=== PATIENT | male | born 1950 | race Caucasian/White ===

== ENCOUNTER 2018-03-09 21:31 | Inpatient (IN) ==
[2018-03-09] MEDS ORDERED: NITROGLYCERIN DRIP 50 MG/250 ML BOTTLE IV PRN (22:19)
[2018-03-09] MEDS ORDERED: ENOXAPARIN 100 MG/ML SYRINGE SUBCUT STA (22:21)
[2018-03-09] MEDS ORDERED: NITROGLYCERIN DRIP 50 MG/250 ML BOTTLE IV ONE ×2 (22:29→23:26)
[2018-03-09] MEDS ORDERED: ENOXAPARIN 100 MG/ML SYRINGE SUBCUT ONE (22:29)
[2018-03-09 22:55] LABS: Basophils % 0.3 % (0.0-0.8); Eosinophils # 0.1 10*3/uL (0.0-0.87); Hematocrit 29.2 VOL% (42.0-52.0); Hemoglobin 9.3 GM/DL (14.0-18.0); Immature Granulocytes % 0.6 %; Immature Granulocytes Absolute 0.08 #; Lymphocytes # 1.9 10*3/uL (1.4-4.0); Lymphocytes % 14.1 % (21.2-54.2); Mean Corpuscular HGB Conc 31.8 GM/DL (32-36); Mean Corpuscular Hemoglobin 27 PG (27-34); Mean Corpuscular Volume 86.1 FL (87-102); Monocytes # 1.3 10*3/uL (0.11-0.8); Monocytes % 9.6 % (1.7-12.7); Neutrophils % 74.4 % (38.7-73.9); Platelet Count 299 T/CUMM (130-400); Red Blood Count 3.39 MC/CUMM (3.8-5.5); Red Cell Distribution Width 14.7 % (9.3-17.3); White Blood Count 13.4 T/CUMM (4-12)
[2018-03-09 23:01] LABS: INR 0.9; Partial Thromboplastin Time 27.1 SECS (0-40)
[2018-03-09 23:06] LABS: Albumin 4.1 G/DL (3.4-5.0); Bilirubin,Total 0.6 MG/DL (0.2-1.0); Calcium 8.6 MG/DL (8.5-10.1); Osmolality,Calculated 266.2 MOS/KG (273-304); Potassium 3.6 MMOL/L (3.5-5.1); Total Protein 6.8 G/DL (6.4-8.3)
[2018-03-09] MEDS ORDERED: ASPIRIN 325 MG TABLET ONE (23:07)
[2018-03-09 23:09] LABS: CKMB % 3.7 %
[2018-03-09 23:10] LABS: Troponin I Only 0.464 NG/ML (0.00-0.045)
[2018-03-09] MEDS ORDERED: MIDAZOLAM 2 MG/2 ML VIAL ONE (23:26)
[2018-03-09] MEDS ORDERED: fentaNYL 100 MCG/2 ML VIAL ONE (23:27)
[2018-03-09] MEDS ORDERED: VERAPAMIL 5 MG/2 ML VIAL ONE (23:27)
[2018-03-09] MEDS ORDERED: EPTIFIBATIDE 20,000 MCG/10 ML VIAL ONE (23:55)
[2018-03-09] MEDS ORDERED: METOPROLOL TARTRATE 5 MG/5 ML VIAL IV ONE (23:55)
[2018-03-09] MEDS ORDERED: EPTIFIBATIDE 75 MG/100 ML BOTTLE IV ONE (23:55)
[2018-03-09] MEDS ORDERED: ONDANSETRON 4 MG/2 ML VIAL IV PRN (23:59)
[2018-03-09] MEDS ORDERED: ACETAMINOPHEN 325 MG TABLET PO PRN (23:59)
[2018-03-09] MEDS ORDERED: ZALEPLON 5 MG CAPSULE PO PRN (23:59)
[2018-03-10] MEDS ORDERED: HEPARIN/NACL 0.9% 2 UNITS/ML 0 ML IV ONE (00:30)
[2018-03-10] MEDS ORDERED: ROSUVASTATIN 20 MG TABLET PO SCH (00:30)
[2018-03-10] MEDS ORDERED: HEPARIN/NACL 0.9% 2 UNITS/ML 1,000 ML IV ONE (00:32)
[2018-03-10] MEDS ORDERED: SODIUM CHLORIDE 0.45% 1,000 ML IV SCH ×2 (01:00→16:44)
[2018-03-10 01:09] LABS: Basophils % 0.3 % (0.0-0.8); Eosinophils # 0.1 10*3/uL (0.0-0.87); Eosinophils % 0.9 % (0.00-10.9); Hematocrit 27.5 VOL% (42.0-52.0); Immature Granulocytes % 0.5 %; Immature Granulocytes Absolute 0.07 #; Lymphocytes # 1.4 10*3/uL (1.4-4.0); Lymphocytes % 9.8 % (21.2-54.2); Mean Corpuscular HGB Conc 32.7 GM/DL (32-36); Mean Corpuscular Hemoglobin 28 PG (27-34); Mean Corpuscular Volume 84.6 FL (87-102); Mean Platelet Volume 10.6 FL (9.6-12.0); Monocytes % 6.9 % (1.7-12.7); Neutrophils # 11.5 10*3/uL (1.4-7.4); Neutrophils % 81.6 % (38.7-73.9); Platelet Count 284 T/CUMM (130-400); Red Blood Count 3.25 MC/CUMM (3.8-5.5); Red Cell Distribution Width 14.7 % (9.3-17.3); White Blood Count 14.1 T/CUMM (4-12)
[2018-03-10] MEDS: MORPHINE 4 MG/1 ML VIAL IV PRN ×3 (01:15→06:14)
[2018-03-10] MEDS: ALBUTEROL/IPRATROPIUM 3 ML NEB RESP TX SCH ×3 (02:13→14:10)
[2018-03-10 03:20] LABS: Basophils % 0.2 % (0.0-0.8); Eosinophils # 0.1 10*3/uL (0.0-0.87); Eosinophils % 0.8 % (0.00-10.9); Hematocrit 27.4 VOL% (42.0-52.0); Immature Granulocytes % 0.5 %; Immature Granulocytes Absolute 0.07 #; Lymphocytes # 1.9 10*3/uL (1.4-4.0); Lymphocytes % 13.9 % (21.2-54.2); Mean Corpuscular HGB Conc 32.8 GM/DL (32-36); Mean Corpuscular Hemoglobin 28 PG (27-34); Mean Corpuscular Volume 83.8 FL (87-102); Monocytes % 7.1 % (1.7-12.7); Neutrophils # 10.5 10*3/uL (1.4-7.4); Neutrophils % 77.5 % (38.7-73.9); Platelet Count 272 T/CUMM (130-400); Red Blood Count 3.27 MC/CUMM (3.8-5.5); Red Cell Distribution Width 14.6 % (9.3-17.3); White Blood Count 13.6 T/CUMM (4-12)
[2018-03-10 03:58] LABS: Calcium 8.4 MG/DL (8.5-10.1); Osmolality,Calculated 267.2 MOS/KG (273-304); Potassium 3.7 MMOL/L (3.5-5.1)
[2018-03-10] MEDS: EPTIFIBATIDE 75 MG/100 ML BOTTLE IV SCH ×3 (06:19→19:16)
[2018-03-10] MEDS ORDERED: TISSUE ADHESIVE 1 EACH APPLICATOR TOP ONE (07:59)
[2018-03-10] MEDS ORDERED: PAPAVERINE 60 MG/2 ML VIAL ONE (07:59)
[2018-03-10] MEDS ORDERED: VANCOMYCIN 1,000 MG VIAL ONE (08:00)
[2018-03-10] MEDS ORDERED: THEOPHYLLINE ER 300 MG TABLET PO SCH (08:00)
[2018-03-10] MEDS: tiZANidine 4 MG TABLET PO SCH ×2 (08:19→19:16)
[2018-03-10 08:51] LABS: ABG HCO3 22.7 MMOL/L (20-26); ABG Oxygen Saturation 95.9 % (95-100); ABG PCO2 30.2 MM HG (35-48); ABG PH 7.455 (7.35-7.45); ABG PO2 74.1 MM HG (80-95); ABG TCO2 19.6 MMOL/L (23-27); Glucose Heart Surgery 129 MG/DL (74-106); Hematocrit Heart Surgery 27.3 PERCENT (42-52); Hemoglobin Heart Surgery 8.8 G/DL (14.0-18.0); Potassium Heart/CVR 3.5 MMOL/L (3.5-5.1)
[2018-03-10] MEDS ORDERED: CEFUROXIME 1,500 MG VIAL ONE (08:58)
[2018-03-10] MEDS ORDERED: NON-FORMULARY MEDICATION (Varenicline Tartrate [Chantix Starter Month Pack] 1 EACH) PO SCH (09:00)
[2018-03-10] MEDS ORDERED: TAMSULOSIN 0.4 MG CAPSULE PO SCH (09:00)
[2018-03-10] MEDS ORDERED: KRILL OIL PO SCH (09:00)
[2018-03-10] MEDS ORDERED: COENZYME Q10 100 MG CAPSULE PO SCH (09:00)
[2018-03-10] MEDS ORDERED: BEVESPI INH SCH (09:00)
[2018-03-10] MEDS ORDERED: predniSONE 10 MG TABLET PO SCH (09:00)
[2018-03-10] MEDS ORDERED: CITALOPRAM 20 MG TABLET PO SCH (09:00)
[2018-03-10] MEDS ORDERED: MULTIVITAMIN (OCUVITE) TABLET PO SCH (09:00)
[2018-03-10] MEDS ORDERED: LOSARTAN 25 MG TABLET PO SCH (09:00)
[2018-03-10] MEDS ORDERED: METOPROLOL TARTRATE 25 MG TABLET PO SCH (09:00)
[2018-03-10] MEDS ORDERED: GABAPENTIN 300 MG CAPSULE PO SCH (09:00)
[2018-03-10] MEDS ORDERED: PANTOPRAZOLE 40 MG TABLET PO SCH (09:00)
[2018-03-10] MEDS ORDERED: MULTIVITAMIN (CENTRUM) TABLET PO SCH (09:00)
[2018-03-10] MEDS ORDERED: ASPIRIN EC 81 MG TABLET PO SCH (09:00)
[2018-03-10] MEDS ORDERED: MONTELUKAST 10 MG TABLET PO SCH (09:00)
[2018-03-10] MEDS ORDERED: LACTOBACILLUS ACIDOPHILUS/BULGARICUS CAPLET PO SCH (09:00)
[2018-03-10] MEDS ORDERED: ISOSORBIDE MONONITRATE 20 MG TABLET PO SCH (09:00)
[2018-03-10 09:56] LABS: ABG HCO3 21.1 MMOL/L (20-26); ABG Oxygen Saturation 98.2 % (95-100); ABG PCO2 51.1 MM HG (35-48); ABG PH 7.264 (7.35-7.45); ABG TCO2 21.9 MMOL/L (23-27); Glucose Heart Surgery 139 MG/DL (74-106); Hematocrit Heart Surgery 25.2 PERCENT (42-52); Hemoglobin Heart Surgery 8.1 G/DL (14.0-18.0); Ionized Calcium Arterial 1.19 MMOL/L (1.21-1.46); PCO2 Patient Temp Arterial 51.1 MMHG; PH Patient Temp Arterial 7.264; Patient Temperature 37 CELCIUS; Potassium Heart/CVR 3.4 MMOL/L (3.5-5.1); Sodium Heart/CVR 133 MMOL/L (135-145)
[2018-03-10 11:23] LABS: Apearance,Urine CLEAR (Clear); Bilirubin,Urine Negative (Negative); Blood, Urine Negative (Negative); Glucose,Urine (UA) Negative (Negative); Ketones,Urine 20 mg/dL (Negative); Mucus,Urine Occasional /LPF (Occasional); Nitrite,Urine Negative (Negative); Protein,Urine Negative; RBC,Urine 2 /HPF (0-4); Urine Color Yellow (Yellow); Urine Urobilinogen < 2.0 EU/DL (0.2-1.0); WBC,Urine <1 /HPF (0-6)
[2018-03-10] MEDS ORDERED: HEPARIN/NACL 0.9% 2 UNITS/ML 500 ML IV ONE (11:24)
[2018-03-10 11:33] LABS: Hemoglobin Heart Surgery 7.1 G/DL (14.0-18.0); PCO2 Patient Temp Venous 41.8 MM HG; PH Patient Temp Venous 7.375; PO2 Patient Temp Venous 42.4 MM HG; Potassium Heart/CVR 3.7 MMOL/L (3.5-5.1); VBG Base Excess -1.2 MEQ/L (0-4); VBG HCO3 23.9 MEQ/L (24-28); VBG Oxygen Saturation 74.4 %; VBG PCO2 41.8 MMHG (41-51); VBG PH 7.375; VBG PO2 42.4 MMHG (17-40)
[2018-03-10] MEDS ORDERED: ALBUMIN 5% 12.5 GM/250 ML VIAL IV ONE ×2 (11:42→14:42)
[2018-03-10] MEDS ORDERED: PHENYLEPHRINE DRIP 40 MG/250 ML PREMIX IV ONE (11:43)
[2018-03-10] MEDS ORDERED: NITROPRUSSIDE 50 MG/2 ML VIAL ONE (11:43)
[2018-03-10] MEDS ORDERED: POTASSIUM CHLORIDE RIDER 0 ML IV ONE (11:43)
[2018-03-10] MEDS ORDERED: CALCIUM CHLORIDE 1,000 MG/10 ML SYRINGE IV ONE (11:43)
[2018-03-10] MEDS ORDERED: SODIUM BICARBONATE 50 MEQ/50 ML SYRINGE IV ONE ×2 (11:44→14:41)
[2018-03-10] MEDS ORDERED: ENOXAPARIN 80 MG/0.8 ML SYRINGE SUBCUT SCH (12:00)
[2018-03-10 12:07] LABS: PCO2 Patient Temp Venous 32.1 MM HG; PH Patient Temp Venous 7.47; Potassium Heart/CVR 5.1 MMOL/L (3.5-5.1); VBG Base Excess -0.9 MEQ/L (0-4); VBG HCO3 23.5 MEQ/L (24-28); VBG Oxygen Saturation 77.2 %; VBG PCO2 36.6 MMHG (41-51); VBG PH 7.425; VBG PO2 43.3 MMHG (17-40)
[2018-03-10] MEDS ORDERED: FAMOTIDINE 20 MG/2 ML VIAL IV ONE (12:08)
[2018-03-10 12:09] LABS: Hemoglobin Heart Surgery 5.6 G/DL (14.0-18.0)
[2018-03-10 12:33] LABS: Hematocrit Heart Surgery 20.1 PERCENT (42-52); PCO2 Patient Temp Venous 30.8 MM HG; PH Patient Temp Venous 7.451; PO2 Patient Temp Venous 32.1 MM HG; Potassium Heart/CVR 4.8 MMOL/L (3.5-5.1); VBG HCO3 22.5 MEQ/L (24-28); VBG Oxygen Saturation 74.5 %; VBG PCO2 35.6 MMHG (41-51); VBG PH 7.407; VBG PO2 39.6 MMHG (17-40)
[2018-03-10 12:34] LABS: Hemoglobin Heart Surgery 6.4 G/DL (14.0-18.0)
[2018-03-10 13:08] LABS: Hemoglobin Heart Surgery 6.6 G/DL (14.0-18.0); PCO2 Patient Temp Venous 35.2 MM HG; PH Patient Temp Venous 7.417; PO2 Patient Temp Venous 35.6 MM HG; Potassium Heart/CVR 4.4 MMOL/L (3.5-5.1); VBG Base Excess -2.2 MEQ/L (0-4); VBG HCO3 22.8 MEQ/L (24-28); VBG Oxygen Saturation 75.2 %; VBG PCO2 40.1 MMHG (41-51); VBG PH 7.373
[2018-03-10 13:31] LABS: Hematocrit Heart Surgery 23.4 PERCENT (42-52); Hemoglobin Heart Surgery 7.5 G/DL (14.0-18.0); PCO2 Patient Temp Venous 46.9 MM HG; PH Patient Temp Venous 7.271; PO2 Patient Temp Venous 41.2 MM HG; Potassium Heart/CVR 4.7 MMOL/L (3.5-5.1); VBG Base Excess -5.1 MEQ/L (0-4); VBG HCO3 19.8 MEQ/L (24-28); VBG Oxygen Saturation 72.2 %; VBG PCO2 46.9 MMHG (41-51); VBG PH 7.271; VBG PO2 41.2 MMHG (17-40)
[2018-03-10 14:27] LABS: ABG Base Excess -3.1 MMOL/L (-2.5-2.5); ABG HCO3 22.3 MMOL/L (20-26); ABG Oxygen Saturation 98.1 % (95-100); ABG PCO2 41.4 MM HG (35-48); ABG PH 7.349 (7.35-7.45); ABG PO2 144.7 MM HG (80-95); ABG TCO2 23.6 MMOL/L (23-27); Glucose Heart Surgery 280 MG/DL (74-106); Hemoglobin Heart Surgery 8.6 G/DL (14.0-18.0); Ionized Calcium Arterial 1.17 MMOL/L (1.21-1.46); Potassium Heart/CVR 3.6 MMOL/L (3.5-5.1); Sodium Heart/CVR 126 MMOL/L (135-145)
[2018-03-10] MEDS ORDERED: THROMBIN TOPICAL (RECOMBINANT) 5,000 UNIT VIAL TOP ONE ×2 (14:34→14:42)
[2018-03-10] MEDS ORDERED: DEXTROSE 5% KCL 20 MEQ 60 MEQ/3,000 ML BAG IV ONE (14:41)
[2018-03-10] MEDS ORDERED: PROTAMINE SULFATE 250 MG/25 ML VIAL IV ONE (14:41)
[2018-03-10] MEDS ORDERED: ALBUMIN 25% 25 GM/100 ML VIAL IV ONE (14:41)
[2018-03-10] MEDS ORDERED: HEPARIN 10,000 UNIT/10 ML VIAL ONE (14:42)
[2018-03-10] MEDS ORDERED: methylPREDNISolone SOD SUC 1,000 MG/8 ML VIAL ONE (14:42)
[2018-03-10] MEDS ORDERED: MANNITOL 12.5 GM/50 ML VIAL IV ONE (14:42)
[2018-03-10] MEDS ORDERED: FUROSEMIDE 20 MG/2 ML VIAL ONE (14:42)
[2018-03-10] MEDS ORDERED: MAGNESIUM SULFATE 1 GM/2 ML VIAL ONE (14:42)
[2018-03-10] MEDS ORDERED: PROTAMINE SULFATE 50 MG/5 ML VIAL IV ONE (14:43)
[2018-03-10] MEDS ORDERED: PHENYLEPHRINE 1 MG/10 ML SYRINGE IV ONE (14:43)
[2018-03-10 14:55] LABS: ABG Base Excess -5.5 MMOL/L (-2.5-2.5); ABG HCO3 19.8 MMOL/L (20-26); ABG Oxygen Saturation 99.3 % (95-100); ABG PCO2 50.6 MM HG (35-48); ABG TCO2 20.9 MMOL/L (23-27); Glucose Heart Surgery 240 MG/DL (74-106); Hematocrit Heart Surgery 20.2 PERCENT (42-52); Ionized Calcium Arterial 0.99 MMOL/L (1.21-1.46); PCO2 Patient Temp Arterial 50.6 MMHG; Patient Temperature 37 CELCIUS; Potassium Heart/CVR 3.5 MMOL/L (3.5-5.1); Sodium Heart/CVR 135 MMOL/L (135-145)
[2018-03-10 14:56] LABS: Hemoglobin Heart Surgery 6.4 G/DL (14.0-18.0)
[2018-03-10 15:16] LABS: ABG Base Excess -5.6 MMOL/L (-2.5-2.5); ABG HCO3 19.8 MMOL/L (20-26); ABG Oxygen Saturation 99.7 % (95-100); ABG PCO2 44.3 MM HG (35-48); ABG PH 7.281 (7.35-7.45); ABG TCO2 19.6 MMOL/L (23-27); Glucose Heart Surgery 242 MG/DL (74-106); Hematocrit Heart Surgery 26.8 PERCENT (42-52); Hemoglobin Heart Surgery 8.6 G/DL (14.0-18.0); Ionized Calcium Arterial 1.26 MMOL/L (1.21-1.46); PCO2 Patient Temp Arterial 44.3 MMHG; PH Patient Temp Arterial 7.281; Patient Temperature 37 CELCIUS; Potassium Heart/CVR 3.6 MMOL/L (3.5-5.1); Sodium Heart/CVR 134 MMOL/L (135-145)
[2018-03-10] MEDS ORDERED: DEXMEDETOMIDINE 200 MCG in SODIUM CHLORIDE 0.9% 48 ML IV PRN (16:30)
[2018-03-10] MEDS ORDERED: PHENYLEPHRINE DRIP 40 MG/250 ML PREMIX IV PRN (16:30)
[2018-03-10] MEDS ORDERED: SUFentanil 250 MCG/5 ML AMP ONE (16:37)
[2018-03-10] MEDS ORDERED: ePHEDrine 50 MG/ML AMP ONE (16:38)
[2018-03-10] MEDS ORDERED: MIDAZOLAM 10 MG/2 ML VIAL ONE (16:38)
[2018-03-10] MEDS ORDERED: MAGNESIUM SULF RIDER 2 GM in PREMIX 1 EACH IV PRN (16:44)
[2018-03-10] MEDS ORDERED: CALCIUM CHLORIDE 1,000 MG/10 ML SYRINGE IV PRN (16:44)
[2018-03-10] MEDS ORDERED: CHLORHEXIDINE 4% SOLN 118 ML BOTTLE TOP PRN (16:44)
[2018-03-10] MEDS ORDERED: POTASSIUM CHLORIDE RIDER 10 MEQ in PREMIX 1 EACH IV PRN (16:44)
[2018-03-10] MEDS ORDERED: INSULIN REGULAR DRIP 100 ML IV SCH (16:44)
[2018-03-10] MEDS ORDERED: DEXTROSE 50% 25 GM/50 ML VIAL IV PRN ×2 (16:44)
[2018-03-10] MEDS ORDERED: SODIUM CHLORIDE 0.9% 250 ML IV PRN (16:44)
[2018-03-10] MEDS ORDERED: MIDAZOLAM 2 MG/2 ML VIAL IV PRN (16:44)
[2018-03-10] MEDS ORDERED: ACETAMINOPHEN 650 MG SUPP RECTAL PRN (16:44)
[2018-03-10] MEDS ORDERED: MAGNESIUM SULF RIDER 4 GM in PREMIX 1 EACH IV PRN (16:44)
[2018-03-10] MEDS ORDERED: CALCIUM CHLORIDE 1,000 MG/10 ML VIAL IV ONE (16:48)
[2018-03-10] MEDS ORDERED: METOPROLOL TARTRATE 5 MG/5 ML VIAL IV ONE (16:49)
[2018-03-10] MEDS ORDERED: VECURONIUM 10 MG VIAL IV ONE (16:49)
[2018-03-10] MEDS ORDERED: SODIUM CHLORIDE 0.9% 2,000 ML IV ONE (16:49)
[2018-03-10] MEDS ORDERED: LACTATED RINGERS 3,000 ML IV ONE (16:49)
[2018-03-10] MEDS ORDERED: DEXAMETHASONE 10 MG/1 ML VIAL ONE (16:49)
[2018-03-10] MEDS ORDERED: TRANEXAMIC ACID 1,000 MG/10 ML VIAL IV ONE (16:49)
[2018-03-10] MEDS ORDERED: PHENYLEPHRINE 10 MG/1 ML VIAL IV ONE (16:49)
[2018-03-10] MEDS ORDERED: SODIUM CHLORIDE 0.9% 100 ML IV ONE (16:51)
[2018-03-10] MEDS ORDERED: SODIUM CHLORIDE 0.9% 500 ML IV ONE (16:52)
[2018-03-10] MEDS ORDERED: DEXMEDETOMIDINE 200 MCG/2 ML VIAL IV ONE (16:53)
[2018-03-10] MEDS ORDERED: SODIUM BICARBONATE 50 MEQ/50 ML VIAL IV ONE (17:00)
[2018-03-10 17:10] LABS: ABG Base Excess 2.8 MMOL/L (-2.5-2.5); ABG HCO3 29.4 MMOL/L (20-26); ABG Oxygen Saturation 97.7 % (95-100); ABG PCO2 58.3 MM HG (35-48); ABG TCO2 31.2 MMOL/L (23-27); Glucose Heart Surgery 171 MG/DL (74-106); Potassium Heart/CVR 3.4 MMOL/L (3.5-5.1)
[2018-03-10 17:13] LABS: Basophils % 0.1 % (0.0-0.8); Eosinophils % 0.1 % (0.00-10.9); Hematocrit 19.7 VOL% (42.0-52.0); Immature Granulocytes % 1.1 %; Immature Granulocytes Absolute 0.15 #; Lymphocytes # 0.6 10*3/uL (1.4-4.0); Lymphocytes % 4.7 % (21.2-54.2); Mean Corpuscular Hemoglobin 29 PG (27-34); Mean Corpuscular Volume 87.6 FL (87-102); Mean Platelet Volume 10.9 FL (9.6-12.0); Monocytes # 1.3 10*3/uL (0.11-0.8); Monocytes % 9.8 % (1.7-12.7); Neutrophils # 11.2 10*3/uL (1.4-7.4); Neutrophils % 84.2 % (38.7-73.9); Red Cell Distribution Width 14.8 % (9.3-17.3); White Blood Count 13.3 T/CUMM (4-12)
[2018-03-10 17:14] LABS: Hemoglobin 6.5 GM/DL (14.0-18.0)
[2018-03-10 17:15] LABS: Platelet Count 96 T/CUMM (130-400); Red Blood Count 2.25 MC/CUMM (3.8-5.5)
[2018-03-10 17:24] LABS: INR 1.3; PT Patient Result 13.6 SECS; Partial Thromboplastin Time 37.4 SECS (0-40)
[2018-03-10 17:31] LABS: Blood Urea Nitrogen 10 MG/DL (7-18); Calcium 7.5 MG/DL (8.5-10.1); Glucose 171 MG/DL (74-106); Osmolality,Calculated 281.4 MOS/KG (273-304); Potassium 3.6 MMOL/L (3.5-5.1); Sodium 140 MMOL/L (136-145)
[2018-03-10 17:35] LABS: Lactic Acid 3.3 MMOL/L (0.4-2.0)
[2018-03-10 17:52] LABS: Band Neutrophils 6 % (0-10); Lymphocytes 2 % (20-55); Platelet Estimate Decreased; Segmented Neutrophils 88 % (50-85); Total Cells Counted 100
[2018-03-10 17:53] LABS: Hypochromasia Slight
[2018-03-10] MEDS: SODIUM CHLORIDE 0.45% 1,000 ML IV SCH (19:11)
[2018-03-10] MEDS: ALBUMIN 5% 12.5 GM in PREMIX 1 EACH IV PRN ×4 (19:13→22:52)
[2018-03-10] MEDS: MORPHINE 10 MG/1 ML VIAL IV PRN ×2 (19:30→21:33)
[2018-03-10] MEDS: POTASSIUM CHLORIDE RIDER 20 MEQ in PREMIX 1 EACH IV PRN (20:38)
[2018-03-10 20:39] LABS: ABG Base Excess 2.6 MMOL/L (-2.5-2.5); ABG HCO3 26.8 MMOL/L (20-26); ABG Oxygen Saturation 99.8 % (95-100); ABG PCO2 44.2 MM HG (35-48); ABG PH 7.404 (7.35-7.45); ABG TCO2 25.6 MMOL/L (23-27); Glucose Heart Surgery 189 MG/DL (74-106); Hematocrit Heart Surgery 26.6 PERCENT (42-52); Hemoglobin Heart Surgery 8.6 G/DL (14.0-18.0); Potassium Heart/CVR 4.2 MMOL/L (3.5-5.1)
[2018-03-10] MEDS ORDERED: DOBUTamine 500 MG/250 ML PREMIX IV PRN (20:47)
[2018-03-10] MEDS ORDERED: ASPIRIN 325 MG TABLET PO ONE (21:51)
[2018-03-10] MEDS: CHLORHEXIDINE 0.12% ORAL RINSE 60 ML BOTTLE SWISH/SPIT SCH (22:06)
[2018-03-10 22:17] LABS: ABG Base Excess 3.2 MMOL/L (-2.5-2.5); ABG HCO3 27.1 MMOL/L (20-26); ABG Oxygen Saturation 97.3 % (95-100); ABG PCO2 38.4 MM HG (35-48); ABG PH 7.466 (7.35-7.45); ABG PO2 98.2 MM HG (80-95); ABG TCO2 28.2 MMOL/L (23-27); Glucose Heart Surgery 161 MG/DL (74-106); Hemoglobin Heart Surgery 9.2 G/DL (14.0-18.0); Potassium Heart/CVR 3.6 MMOL/L (3.5-5.1)
[2018-03-11] MEDS: MORPHINE 10 MG/1 ML VIAL IV PRN ×7 (00:13→20:06)
[2018-03-11] MEDS: POTASSIUM CHLORIDE RIDER 20 MEQ in PREMIX 1 EACH IV PRN ×3 (01:56→05:12)
[2018-03-11] MEDS: CEFUROXIME INJ 1,500 MG in SYRINGE 1 EACH IV SCH ×2 (02:01→12:00)
[2018-03-11 04:01] LABS: Basophils % 0.1 % (0.0-0.8); Hematocrit 21.8 VOL% (42.0-52.0); Hemoglobin 7.7 GM/DL (14.0-18.0); Immature Granulocytes % 0.4 %; Immature Granulocytes Absolute 0.05 #; Lymphocytes # 1.1 10*3/uL (1.4-4.0); Lymphocytes % 8.2 % (21.2-54.2); Mean Corpuscular HGB Conc 35.3 GM/DL (32-36); Mean Corpuscular Hemoglobin 29 PG (27-34); Mean Platelet Volume 11.3 FL (9.6-12.0); Monocytes # 1.1 10*3/uL (0.11-0.8); Monocytes % 8.3 % (1.7-12.7); Platelet Count 76 T/CUMM (130-400); Red Blood Count 2.69 MC/CUMM (3.8-5.5); Red Cell Distribution Width 17.2 % (9.3-17.3); White Blood Count 13.2 T/CUMM (4-12)
[2018-03-11 04:25] LABS: Calcium 7.3 MG/DL (8.5-10.1); Osmolality,Calculated 278.5 MOS/KG (273-304); Potassium 3.9 MMOL/L (3.5-5.1)
[2018-03-11 04:26] LABS: Anisocytosis 1+; Polychromasia Slight
[2018-03-11] MEDS ORDERED: METOPROLOL TARTRATE 25 MG TABLET PO SCH (05:00)
[2018-03-11] MEDS: SODIUM CHLORIDE 0.45% 1,000 ML IV SCH ×2 (05:35→15:30)
[2018-03-11] MEDS ORDERED: GLUCAGON 1 MG VIAL IM PRN (09:09)
[2018-03-11] MEDS ORDERED: DEXTROSE 50% 25 GM/50 ML VIAL IV PRN (09:09)
[2018-03-11] MEDS ORDERED: FUROSEMIDE 40 MG/4 ML VIAL IV ONE ×2 (09:16→20:34)
[2018-03-11] MEDS: LORazepam 0.5 MG TABLET PO PRN ×2 (09:30→21:30)
[2018-03-11] MEDS: NICOTINE 21 MG/24 HR PATCH TRANSDERM SCH (09:30)
[2018-03-11] MEDS: CHLORHEXIDINE 0.12% ORAL RINSE 60 ML BOTTLE SWISH/SPIT SCH ×2 (09:34→20:21)
[2018-03-11 11:04] LABS: ABG Base Excess 3.1 MMOL/L (-2.5-2.5); ABG HCO3 26.2 MMOL/L (20-26); ABG PCO2 34.3 MM HG (35-48); ABG PH 7.501 (7.35-7.45); ABG PO2 62.8 MM HG (80-95); ABG TCO2 27.3 MMOL/L (23-27); Glucose Heart Surgery 143 MG/DL (74-106); Hemoglobin Heart Surgery 10.2 G/DL (14.0-18.0); Potassium Heart/CVR 3.8 MMOL/L (3.5-5.1)
[2018-03-11] MEDS: INSULIN REGULAR 100 UNIT/ML SUBCUT SCH ×3 (11:09→17:58)
[2018-03-11] MEDS: METOPROLOL TARTRATE 25 MG TABLET PO SCH ×2 (11:10→20:07)
[2018-03-11] MEDS: predniSONE 10 MG TABLET PO SCH (12:00)
[2018-03-11] MEDS: GABAPENTIN 300 MG CAPSULE PO SCH (12:00)
[2018-03-11] MEDS: ALBUTEROL/IPRATROPIUM 3 ML NEB RESP TX SCH ×2 (13:04→19:36)
[2018-03-11] MEDS: MORPHINE 4 MG/1 ML VIAL IV PRN ×2 (15:05→18:15)
[2018-03-11] MEDS ORDERED: ATORVASTATIN 40 MG TABLET PO SCH (16:14)
[2018-03-11] MEDS: ATORVASTATIN 40 MG TABLET PO SCH ×2 (18:09→20:21)
[2018-03-11] MEDS: ASPIRIN EC 325 MG TABLET PO SCH (18:09)
[2018-03-11] MEDS: FUROSEMIDE 40 MG TABLET PO SCH (18:09)
[2018-03-12] MEDS: INSULIN REGULAR 100 UNIT/ML SUBCUT SCH ×6 (00:31→21:02)
[2018-03-12] MEDS: CEFUROXIME INJ 1,500 MG in SYRINGE 1 EACH IV SCH ×2 (00:44→12:27)
[2018-03-12] MEDS: ALBUTEROL/IPRATROPIUM 3 ML NEB RESP TX SCH ×4 (01:19→19:12)
[2018-03-12 05:08] LABS: Basophils % 0.1 % (0.0-0.8); Hematocrit 27.3 VOL% (42.0-52.0); Hemoglobin 9.1 GM/DL (14.0-18.0); Immature Granulocytes % 0.8 %; Immature Granulocytes Absolute 0.17 #; Lymphocytes # 1.4 10*3/uL (1.4-4.0); Lymphocytes % 6.9 % (21.2-54.2); Mean Corpuscular HGB Conc 33.3 GM/DL (32-36); Mean Corpuscular Hemoglobin 29 PG (27-34); Mean Corpuscular Volume 86.9 FL (87-102); Mean Platelet Volume 12.5 FL (9.6-12.0); Monocytes # 1.9 10*3/uL (0.11-0.8); Monocytes % 9.4 % (1.7-12.7); Neutrophils # 16.7 10*3/uL (1.4-7.4); Neutrophils % 82.8 % (38.7-73.9); Red Blood Count 3.14 MC/CUMM (3.8-5.5); Red Cell Distribution Width 17.3 % (9.3-17.3); White Blood Count 20.1 T/CUMM (4-12)
[2018-03-12 05:15] LABS: Platelet Count 93 T/CUMM (130-400)
[2018-03-12 05:29] LABS: Anisocytosis 1+; Hypochromasia 1+; Microcytosis 1+; Ovalocytes Slight; Platelet Estimate Decreased
[2018-03-12 05:35] LABS: Calcium 7.6 MG/DL (8.5-10.1); Osmolality,Calculated 273.1 MOS/KG (273-304); Potassium 4.3 MMOL/L (3.5-5.1)
[2018-03-12] MEDS: MORPHINE 4 MG/1 ML VIAL IV PRN (06:56)
[2018-03-12] MEDS: NICOTINE 21 MG/24 HR PATCH TRANSDERM SCH (08:10)
[2018-03-12] MEDS: GABAPENTIN 300 MG CAPSULE PO SCH (08:10)
[2018-03-12] MEDS: predniSONE 10 MG TABLET PO SCH (08:10)
[2018-03-12] MEDS: FUROSEMIDE 40 MG TABLET PO SCH (08:10)
[2018-03-12] MEDS: CHLORHEXIDINE 0.12% ORAL RINSE 60 ML BOTTLE SWISH/SPIT SCH ×2 (08:10→21:10)
[2018-03-12] MEDS: METOPROLOL TARTRATE 25 MG TABLET PO SCH ×2 (08:11→21:01)
[2018-03-12] MEDS: ASPIRIN EC 325 MG TABLET PO SCH (08:11)
[2018-03-12] MEDS: MORPHINE 10 MG/1 ML VIAL IV PRN ×2 (10:03→12:20)
[2018-03-12] MEDS ORDERED: GABAPENTIN 300 MG CAPSULE PO SCH (12:00)
[2018-03-12] MEDS: MONTELUKAST 10 MG TABLET PO SCH (12:21)
[2018-03-12] MEDS: THEOPHYLLINE ER (24 HR) 300 MG CAPSULE PO SCH (12:21)
[2018-03-12] MEDS: TAMSULOSIN 0.4 MG CAPSULE PO SCH (12:21)
[2018-03-12] MEDS: SODIUM CHLORIDE 0.45% 1,000 ML IV SCH (12:22)
[2018-03-12] MEDS: tiZANidine 4 MG TABLET PO SCH ×2 (14:49→20:24)
[2018-03-12] MEDS ORDERED: ALBUMIN 5% 25 GM in PREMIX 1 EACH IV ONE (16:29)
[2018-03-12] MEDS ORDERED: ALBUMIN 5% 12.5 GM/250 ML VIAL IV ONE (16:31)
[2018-03-12] MEDS: ATORVASTATIN 40 MG TABLET PO SCH (20:24)
[2018-03-12] MEDS ORDERED: AMIODARONE INJ 150 MG in DEXTROSE 5% 100 ML IV ONE (20:39)
[2018-03-12] MEDS ORDERED: SODIUM CHLORIDE 0.9% 500 ML IV ONE (20:41)
[2018-03-12] MEDS ORDERED: AMIODARONE 150 MG/3 ML VIAL ONE (20:42)
[2018-03-12] MEDS: BEVESPI INH SCH (20:56)
[2018-03-12] MEDS ORDERED: AMIODARONE INJ 450 MG in DEXTROSE 5% 241 ML IV SCH (21:00)
[2018-03-12 22:06] LABS: Basophils % 0.1 % (0.0-0.8); Hematocrit 23.1 VOL% (42.0-52.0); Hemoglobin 7.7 GM/DL (14.0-18.0); Immature Granulocytes % 1.4 %; Immature Granulocytes Absolute 0.26 #; Lymphocytes % 5.2 % (21.2-54.2); Mean Corpuscular HGB Conc 33.3 GM/DL (32-36); Mean Corpuscular Hemoglobin 29 PG (27-34); Mean Corpuscular Volume 87.2 FL (87-102); Mean Platelet Volume 12.6 FL (9.6-12.0); Monocytes # 1.7 10*3/uL (0.11-0.8); Monocytes % 9.3 % (1.7-12.7); Neutrophils # 15.5 10*3/uL (1.4-7.4); Red Blood Count 2.65 MC/CUMM (3.8-5.5); Red Cell Distribution Width 17.1 % (9.3-17.3); White Blood Count 18.4 T/CUMM (4-12)
[2018-03-12 22:08] LABS: Platelet Count 87 T/CUMM (130-400)
[2018-03-12 22:28] LABS: Osmolality,Calculated 269.4 MOS/KG (273-304); Potassium 3.3 MMOL/L (3.5-5.1)
[2018-03-12] MEDS ORDERED: CALCIUM GLUCONATE 1,000 MG in SODIUM CHLORIDE 0.9% 100 ML IV ONE (22:39)
[2018-03-12] MEDS ORDERED: FUROSEMIDE 20 MG/2 ML VIAL IV ONE (23:00)
[2018-03-13] MEDS: INSULIN REGULAR 100 UNIT/ML SUBCUT SCH ×6 (00:21→21:18)
[2018-03-13] MEDS: CEFUROXIME INJ 1,500 MG in SYRINGE 1 EACH IV SCH ×2 (00:22→14:09)
[2018-03-13] MEDS ORDERED: POTASSIUM CHLORIDE INJ 40 MEQ in SODIUM CHLORIDE 0.9% 380 ML IV SCH (01:00)
[2018-03-13] MEDS: ALBUTEROL/IPRATROPIUM 3 ML NEB RESP TX SCH ×4 (01:09→19:10)
[2018-03-13] MEDS: AMIODARONE INJ 450 MG in DEXTROSE 5% 241 ML IV SCH ×2 (03:58→21:17)
[2018-03-13] MEDS: MORPHINE 4 MG/1 ML VIAL IV PRN (05:37)
[2018-03-13 07:42] LABS: Basophils % 0.1 % (0.0-0.8); Immature Granulocytes % 1.1 %; Immature Granulocytes Absolute 0.23 #; Lymphocytes # 1.3 10*3/uL (1.4-4.0); Lymphocytes % 6.1 % (21.2-54.2); Mean Corpuscular HGB Conc 33.9 GM/DL (32-36); Mean Corpuscular Hemoglobin 30 PG (27-34); Mean Corpuscular Volume 87.1 FL (87-102); Mean Platelet Volume 12.8 FL (9.6-12.0); Monocytes # 1.9 10*3/uL (0.11-0.8); Monocytes % 8.9 % (1.7-12.7); Neutrophils # 17.8 10*3/uL (1.4-7.4); Neutrophils % 83.8 % (38.7-73.9); Platelet Count 99 T/CUMM (130-400); Red Cell Distribution Width 16.5 % (9.3-17.3); White Blood Count 21.3 T/CUMM (4-12)
[2018-03-13 07:47] LABS: Red Blood Count 3.56 MC/CUMM (3.8-5.5)
[2018-03-13 07:48] LABS: Hemoglobin 10.5 GM/DL (14.0-18.0)
[2018-03-13] MEDS: NICOTINE 21 MG/24 HR PATCH TRANSDERM SCH (07:59)
[2018-03-13] MEDS: ASPIRIN EC 325 MG TABLET PO SCH (07:59)
[2018-03-13] MEDS: predniSONE 10 MG TABLET PO SCH (07:59)
[2018-03-13] MEDS: MONTELUKAST 10 MG TABLET PO SCH (07:59)
[2018-03-13] MEDS: GABAPENTIN 300 MG CAPSULE PO SCH (07:59)
[2018-03-13] MEDS: TAMSULOSIN 0.4 MG CAPSULE PO SCH (07:59)
[2018-03-13] MEDS: THEOPHYLLINE ER (24 HR) 300 MG CAPSULE PO SCH (08:00)
[2018-03-13] MEDS: CHLORHEXIDINE 0.12% ORAL RINSE 60 ML BOTTLE SWISH/SPIT SCH ×2 (08:00→21:16)
[2018-03-13] MEDS: tiZANidine 4 MG TABLET PO SCH ×3 (08:00→21:16)
[2018-03-13] MEDS: BEVESPI INH SCH ×2 (08:00→23:00)
[2018-03-13 08:01] LABS: Band Neutrophils 1 % (0-10); Giant Platelets Few; Hypochromasia 1+; Lymphocytes 3 % (20-55); Ovalocytes Slight; Platelet Estimate Decreased; Segmented Neutrophils 89 % (50-85); Total Cells Counted 100
[2018-03-13 08:10] LABS: Calcium 7.6 MG/DL (8.5-10.1); Osmolality,Calculated 269.2 MOS/KG (273-304); Potassium 3.9 MMOL/L (3.5-5.1)
[2018-03-13] MEDS: METOPROLOL TARTRATE 25 MG TABLET PO SCH ×3 (09:22→21:17)
[2018-03-13] MEDS: FUROSEMIDE 40 MG TABLET PO SCH (09:22)
[2018-03-13] MEDS: FUROSEMIDE 20 MG TABLET PO SCH (09:31)
[2018-03-13] MEDS ORDERED: CALCIUM GLUCONATE 1,000 MG in SODIUM CHLORIDE 0.9% 100 ML IV ONE (11:00)
[2018-03-13] MEDS ORDERED: CEFUROXIME 1,500 MG VIAL ONE (14:00)
[2018-03-13] MEDS: ATORVASTATIN 40 MG TABLET PO SCH (21:16)
[2018-03-13] MEDS: ONDANSETRON 4 MG/2 ML VIAL IV PRN (21:21)
[2018-03-14] MEDS: ALBUTEROL/IPRATROPIUM 3 ML NEB RESP TX SCH ×3 (00:40→13:32)
[2018-03-14] MEDS: INSULIN REGULAR 100 UNIT/ML SUBCUT SCH ×5 (01:32→18:22)
[2018-03-14] MEDS: AMIODARONE 200 MG TABLET PO SCH ×3 (03:02→21:43)
[2018-03-14 05:18] LABS: Basophils % 0.1 % (0.0-0.8); Eosinophils % 0.2 % (0.00-10.9); Hematocrit 32.2 VOL% (42.0-52.0); Hemoglobin 10.7 GM/DL (14.0-18.0); Immature Granulocytes Absolute 0.19 #; Lymphocytes # 1.1 10*3/uL (1.4-4.0); Mean Corpuscular HGB Conc 33.2 GM/DL (32-36); Mean Corpuscular Hemoglobin 29 PG (27-34); Mean Corpuscular Volume 88.5 FL (87-102); Mean Platelet Volume 12.4 FL (9.6-12.0); Monocytes # 1.8 10*3/uL (0.11-0.8); Monocytes % 9.4 % (1.7-12.7); Neutrophils # 15.4 10*3/uL (1.4-7.4); Neutrophils % 83.3 % (38.7-73.9); Platelet Count 114 T/CUMM (130-400); Red Blood Count 3.64 MC/CUMM (3.8-5.5); White Blood Count 18.6 T/CUMM (4-12)
[2018-03-14 05:43] LABS: Calcium 7.7 MG/DL (8.5-10.1); Osmolality,Calculated 265.4 MOS/KG (273-304); Potassium 3.7 MMOL/L (3.5-5.1)
[2018-03-14] MEDS: FUROSEMIDE 20 MG TABLET PO SCH (09:33)
[2018-03-14] MEDS: ASPIRIN EC 325 MG TABLET PO SCH (09:33)
[2018-03-14] MEDS: GABAPENTIN 300 MG CAPSULE PO SCH (09:33)
[2018-03-14] MEDS: THEOPHYLLINE ER (24 HR) 300 MG CAPSULE PO SCH (09:33)
[2018-03-14] MEDS: MONTELUKAST 10 MG TABLET PO SCH (09:33)
[2018-03-14] MEDS: METOPROLOL TARTRATE 25 MG TABLET PO SCH ×2 (09:34→21:44)
[2018-03-14] MEDS: tiZANidine 4 MG TABLET PO SCH ×3 (09:34→21:43)
[2018-03-14] MEDS: predniSONE 10 MG TABLET PO SCH (09:34)
[2018-03-14] MEDS: TAMSULOSIN 0.4 MG CAPSULE PO SCH (09:34)
[2018-03-14] MEDS: CHLORHEXIDINE 0.12% ORAL RINSE 60 ML BOTTLE SWISH/SPIT SCH ×2 (09:34→21:44)
[2018-03-14] MEDS: NICOTINE 21 MG/24 HR PATCH TRANSDERM SCH (09:35)
[2018-03-14] MEDS: BEVESPI INH SCH (09:35)
[2018-03-14] MEDS: RAMIPRIL 2.5 MG CAPSULE PO SCH (09:36)
[2018-03-14] MEDS: AMIODARONE INJ 450 MG in DEXTROSE 5% 241 ML IV SCH (10:16)
[2018-03-14] MEDS ORDERED: SODIUM PHOSPHATE ENEMA 133 ML BOTTLE RECTAL ONE (11:00)
[2018-03-14] MEDS: DOCUSATE SODIUM 100 MG CAPSULE PO SCH ×2 (11:50→21:42)
[2018-03-14] MEDS: ONDANSETRON 4 MG/2 ML VIAL IV PRN ×2 (14:40→21:44)
[2018-03-14] MEDS ORDERED: ALBUTEROL 1.25 MG/3 ML NEB RESP TX PRN (19:00)
[2018-03-14] MEDS: ATORVASTATIN 40 MG TABLET PO SCH (21:43)
[2018-03-15] MEDS: BEVESPI INH SCH ×2 (02:56→09:22)
[2018-03-15] MEDS: INSULIN REGULAR 100 UNIT/ML SUBCUT SCH ×4 (02:57→13:11)
[2018-03-15] MEDS: AMIODARONE INJ 450 MG in DEXTROSE 5% 241 ML IV SCH (02:58)
[2018-03-15 05:03] LABS: Basophils % 0.1 % (0.0-0.8); Eosinophils # 0.2 10*3/uL (0.0-0.87); Hematocrit 32.4 VOL% (42.0-52.0); Hemoglobin 11.2 GM/DL (14.0-18.0); Immature Granulocytes % 0.8 %; Immature Granulocytes Absolute 0.13 #; Lymphocytes # 1.1 10*3/uL (1.4-4.0); Lymphocytes % 6.6 % (21.2-54.2); Mean Corpuscular HGB Conc 34.6 GM/DL (32-36); Mean Corpuscular Hemoglobin 30 PG (27-34); Mean Corpuscular Volume 87.1 FL (87-102); Mean Platelet Volume 11.8 FL (9.6-12.0); Monocytes # 1.9 10*3/uL (0.11-0.8); Monocytes % 10.8 % (1.7-12.7); Neutrophils # 13.9 10*3/uL (1.4-7.4); Neutrophils % 80.7 % (38.7-73.9); Platelet Count 137 T/CUMM (130-400); Red Blood Count 3.72 MC/CUMM (3.8-5.5); Red Cell Distribution Width 17.6 % (9.3-17.3); White Blood Count 17.2 T/CUMM (4-12)
[2018-03-15 05:33] LABS: Calcium 7.9 MG/DL (8.5-10.1); Osmolality,Calculated 265.4 MOS/KG (273-304); Potassium 3.8 MMOL/L (3.5-5.1)
[2018-03-15] MEDS: MONTELUKAST 10 MG TABLET PO SCH (09:20)
[2018-03-15] MEDS: THEOPHYLLINE ER (24 HR) 300 MG CAPSULE PO SCH (09:20)
[2018-03-15] MEDS: ASPIRIN EC 325 MG TABLET PO SCH (09:21)
[2018-03-15] MEDS: RAMIPRIL 2.5 MG CAPSULE PO SCH (09:21)
[2018-03-15] MEDS: DOCUSATE SODIUM 100 MG CAPSULE PO SCH (09:21)
[2018-03-15] MEDS: GABAPENTIN 300 MG CAPSULE PO SCH (09:21)
[2018-03-15] MEDS: FUROSEMIDE 20 MG TABLET PO SCH (09:21)
[2018-03-15] MEDS: METOPROLOL TARTRATE 25 MG TABLET PO SCH (09:21)
[2018-03-15] MEDS: TAMSULOSIN 0.4 MG CAPSULE PO SCH (09:21)
[2018-03-15] MEDS: NICOTINE 21 MG/24 HR PATCH TRANSDERM SCH (09:21)
[2018-03-15] MEDS: AMIODARONE 200 MG TABLET PO SCH (09:21)
[2018-03-15] MEDS: tiZANidine 4 MG TABLET PO SCH (09:22)
[2018-03-15] MEDS: CHLORHEXIDINE 0.12% ORAL RINSE 60 ML BOTTLE SWISH/SPIT SCH (09:22)
[2018-03-15] MEDS: predniSONE 10 MG TABLET PO SCH (09:22)
[2018-03-15] MEDS ORDERED: CLOPIDOGREL 75 MG TABLET PO SCH (10:00)
[2018-03-15 12:41] VITALS: BP 94/56
== END 2018-03-15 14:00 | DRG 234 ==
LOC: N.ED 21:31 → N.CC 23:25 → N.CVR 03-10 12:26 → N.ICU 03-11 18:57 → N.TELES 03-13 14:27
PROVIDERS: ADMIT Internal Medicine Cardiovascular Disease; ATTEND Internal Medicine Cardiovascular Disease

== ENCOUNTER 2018-11-22 11:50 | Observation (INO) ==
[2018-11-22] MEDS ORDERED: ASPIRIN 325 MG TABLET PO STA (14:38)
[2018-11-22] MEDS ORDERED: ONDANSETRON 4 MG/2 ML VIAL IV PRN ×2 (14:38→15:50)
[2018-11-22] MEDS ORDERED: ENOXAPARIN 100 MG/ML SYRINGE SUBCUT STA (14:38)
[2018-11-22] MEDS ORDERED: NITROGLYCERIN 2% OINT 1 INCH/GM PACK TOP STA (14:38)
[2018-11-22] MEDS ORDERED: MORPHINE 4 MG/1 ML VIAL IV PRN ×2 (14:38→17:48)
[2018-11-22 14:47] LABS: Basophils # 0.1 10*3/uL (0.0-0.2); Basophils % 0.9 % (0.0-0.8); Eosinophils # 0.2 10*3/uL (0.0-0.87); Eosinophils % 2.7 % (0.00-10.9); Hematocrit 39.3 VOL% (42.0-52.0); Immature Granulocytes % 1.1 %; Immature Granulocytes Absolute 0.09 #; Lymphocytes # 1.6 10*3/uL (1.4-4.0); Lymphocytes % 20.6 % (21.2-54.2); Mean Corpuscular HGB Conc 33.1 GM/DL (32-36); Mean Corpuscular Hemoglobin 32 PG (27-34); Mean Corpuscular Volume 97.5 FL (87-102); Mean Platelet Volume 10.6 FL (9.6-12.0); Monocytes # 0.9 10*3/uL (0.11-0.8); Monocytes % 11.6 % (1.7-12.7); Neutrophils % 63.1 % (38.7-73.9); Platelet Count 232 T/CUMM (130-400); Red Blood Count 4.03 MC/CUMM (3.8-5.5); Red Cell Distribution Width 14.5 % (9.3-17.3); White Blood Count 7.9 T/CUMM (4-12)
[2018-11-22 14:53] LABS: INR 0.9; Partial Thromboplastin Time 25.9 SECS (0-40)
[2018-11-22 15:03] LABS: Albumin 3.9 G/DL (3.4-5.0); Bilirubin,Total 0.8 MG/DL (0.2-1.0); Calcium 8.2 MG/DL (8.5-10.1); Osmolality,Calculated 267.1 MOS/KG (273-304); Potassium 4.1 MMOL/L (3.5-5.1); Total Protein 6.6 G/DL (6.4-8.3)
[2018-11-22] MEDS ORDERED: POTASSIUM CHLORIDE 20 MEQ TABLET PO PRN (15:50)
[2018-11-22] MEDS ORDERED: diphenhydrAMINE CAP 25 MG CAPSULE PO PRN (15:50)
[2018-11-22] MEDS ORDERED: PROMETHAZINE 25 MG TABLET PO PRN (15:50)
[2018-11-22] MEDS ORDERED: DOCUSATE SODIUM 100 MG CAPSULE PO PRN (15:50)
[2018-11-22] MEDS ORDERED: MAGNESIUM SULF RIDER 2 GM in PREMIX 1 EACH IV PRN (15:50)
[2018-11-22] MEDS ORDERED: MAGNESIUM SULF RIDER 4 GM in PREMIX 1 EACH IV PRN (15:50)
[2018-11-22] MEDS ORDERED: guaiFENesin/DM ER 600-30 MG TABLET PO PRN (15:50)
[2018-11-22] MEDS ORDERED: ZALEPLON 5 MG CAPSULE PO PRN (15:50)
[2018-11-22] MEDS ORDERED: LACTULOSE 20 GM/30 ML UDCUP PO PRN (15:50)
[2018-11-22] MEDS ORDERED: KETOROLAC 30 MG/1 ML VIAL IV ONE (17:46)
[2018-11-22] MEDS ORDERED: ALBUTEROL 2.5 MG/3 ML NEB RESP TX PRN (17:47)
[2018-11-22] MEDS ORDERED: NITROGLYCERIN SL 0.4 MG TABLET SL PRN (17:48)
[2018-11-22] MEDS: ENOXAPARIN 100 MG/ML SYRINGE SUBCUT SCH (18:33)
[2018-11-22] MEDS: tiZANidine 4 MG TABLET PO PRN ×2 (18:39→23:50)
[2018-11-22] MEDS ORDERED: BUDESONIDE/FORMOTEROL 160-4.5 INHALER 6 GM INH PRN (18:51)
[2018-11-22 19:54] LABS: Troponin I < 0.015 NG/ML (0.00-0.045)
[2018-11-22] MEDS ORDERED: ASPIRIN EC 325 MG TABLET PO SCH (21:00)
[2018-11-22] MEDS ORDERED: FAMOTIDINE 20 MG TABLET PO SCH (21:00)
[2018-11-22] MEDS ORDERED: MONTELUKAST 10 MG TABLET PO SCH (21:00)
[2018-11-22] MEDS ORDERED: GABAPENTIN 300 MG CAPSULE PO SCH (21:00)
[2018-11-22] MEDS: GABAPENTIN 300 MG CAPSULE PO SCH (21:14)
[2018-11-22] MEDS: METOPROLOL TARTRATE 25 MG TABLET PO SCH (21:14)
[2018-11-22] MEDS: traMADol 50 MG TABLET PO SCH (21:14)
[2018-11-22] MEDS: ACETAMINOPHEN 325 MG TABLET PO SCH (21:14)
[2018-11-23 05:00] LABS: Basophils # 0.1 10*3/uL (0.0-0.2); Basophils % 0.9 % (0.0-0.8); Eosinophils # 0.3 10*3/uL (0.0-0.87); Eosinophils % 4.2 % (0.00-10.9); Hematocrit 34.9 VOL% (42.0-52.0); Hemoglobin 11.3 GM/DL (14.0-18.0); Immature Granulocytes % 0.9 %; Immature Granulocytes Absolute 0.06 #; Lymphocytes # 2.3 10*3/uL (1.4-4.0); Lymphocytes % 33.1 % (21.2-54.2); Mean Corpuscular HGB Conc 32.4 GM/DL (32-36); Mean Corpuscular Hemoglobin 32 PG (27-34); Mean Corpuscular Volume 98.6 FL (87-102); Mean Platelet Volume 10.4 FL (9.6-12.0); Monocytes % 14.5 % (1.7-12.7); Neutrophils # 3.2 10*3/uL (1.4-7.4); Neutrophils % 46.4 % (38.7-73.9); Platelet Count 210 T/CUMM (130-400); Red Blood Count 3.54 MC/CUMM (3.8-5.5); Red Cell Distribution Width 14.5 % (9.3-17.3)
[2018-11-23] MEDS: ENOXAPARIN 100 MG/ML SYRINGE SUBCUT SCH (05:20)
[2018-11-23 05:24] LABS: Calcium 7.9 MG/DL (8.5-10.1); Potassium 4.4 MMOL/L (3.5-5.1); Risk Ratio 3.95; VLDL CHOLESTEROL 44.8 MG/DL
[2018-11-23 05:27] LABS: Troponin I 0.023 NG/ML (0.00-0.045)
[2018-11-23 06:18] LABS: Apearance,Urine CLEAR (Clear); Bilirubin,Urine Negative (Negative); Blood, Urine Negative (Negative); Glucose,Urine (UA) Negative (Negative); Ketones,Urine Negative (Negative); Nitrite,Urine Negative (Negative); Protein,Urine Negative; RBC,Urine 1 /HPF (0-4); Urine Color Straw (Yellow); Urine Specific Gravity 1.003 (1.001-1.035); Urine Urobilinogen < 2.0 EU/DL (0.2-1.0); WBC,Urine <1 /HPF (0-6)
[2018-11-23] MEDS ORDERED: FUROSEMIDE 40 MG TABLET PO SCH (08:00)
[2018-11-23] MEDS ORDERED: CITALOPRAM 20 MG TABLET PO SCH (09:00)
[2018-11-23] MEDS ORDERED: SPIRONOLACTONE 25 MG TABLET PO SCH (09:00)
[2018-11-23] MEDS ORDERED: AMIODARONE 200 MG TABLET PO SCH (09:00)
[2018-11-23] MEDS ORDERED: LISINOPRIL 10 MG TABLET PO SCH (09:00)
[2018-11-23] MEDS ORDERED: TAMSULOSIN 0.4 MG CAPSULE PO SCH (09:00)
[2018-11-23] MEDS ORDERED: PANTOPRAZOLE 40 MG TABLET PO SCH (09:00)
[2018-11-23] MEDS: GABAPENTIN 300 MG CAPSULE PO SCH (09:52)
[2018-11-23] MEDS: METOPROLOL TARTRATE 25 MG TABLET PO SCH (09:52)
[2018-11-23] MEDS: ACETAMINOPHEN 325 MG TABLET PO SCH (09:53)
[2018-11-23] MEDS: traMADol 50 MG TABLET PO SCH (09:53)
[2018-11-23] MEDS ORDERED: FUROSEMIDE 40 MG/4 ML VIAL IV ONE (11:00)
[2018-11-23 11:43] VITALS: BP 132/71
[2018-11-24] MEDS ORDERED: FUROSEMIDE 80 MG TABLET PO SCH (09:00)
== END 2018-11-23 12:10 | disposition home or self-care (01) ==
LOC: N.ED 11:50 → N.EDINP 11:50 → N.TELEN 18:05
PROVIDERS: ADMIT Internal Medicine Cardiovascular Disease; ATTEND Internal Medicine Cardiovascular Disease

== ENCOUNTER 2019-07-14 11:21 | Observation (INO) ==
[2019-07-14 12:13] LABS: Basophils # 0.1 10*3/uL (0.0-0.2); Basophils % 0.6 % (0.0-0.8); Eosinophils # 0.1 10*3/uL (0.0-0.87); Eosinophils % 1.7 % (0.00-10.9); Hematocrit 40.8 VOL% (42.0-52.0); Hemoglobin 13.7 GM/DL (14.0-18.0); Immature Granulocytes % 0.6 %; Immature Granulocytes Absolute 0.05 #; Lymphocytes # 1.4 10*3/uL (1.4-4.0); Lymphocytes % 16.6 % (21.2-54.2); Mean Corpuscular HGB Conc 33.6 GM/DL (32-36); Mean Corpuscular Volume 98.6 FL (87-102); Mean Platelet Volume 10.3 FL (9.6-12.0); Monocytes % 11.4 % (1.7-12.7); Neutrophils % 69.1 % (38.7-73.9); Platelet Count 174 T/CUMM (130-400); Red Blood Count 4.14 MC/CUMM (3.8-5.5); Red Cell Distribution Width 13.5 % (9.3-17.3); White Blood Count 8.1 T/CUMM (4-12)
[2019-07-14 12:25] LABS: PT Patient Result 10.4 SECS (9.6-12.2)
[2019-07-14 12:34] LABS: Calcium 9.1 MG/DL (8.5-10.1); Osmolality,Calculated 274.8 MOS/KG (273-304)
[2019-07-14] MEDS ORDERED: ACETAMINOPHEN 325 MG TABLET PO PRN (15:13)
[2019-07-14] MEDS ORDERED: ONDANSETRON 4 MG/2 ML VIAL IV PRN (15:13)
[2019-07-14] MEDS ORDERED: BUDESONIDE/FORMOTEROL 160-4.5 INHALER 6 GM INH PRN (15:16)
[2019-07-14] MEDS ORDERED: NITROGLYCERIN SL 0.4 MG TABLET SL PRN (15:16)
[2019-07-14] MEDS ORDERED: ALBUTEROL 2.5 MG/3 ML NEB RESP TX PRN (15:51)
[2019-07-14 17:56] LABS: Apearance,Urine CLEAR (Clear); Bilirubin,Urine Negative (Negative); Blood, Urine Negative (Negative); Glucose,Urine (UA) Negative (Negative); Ketones,Urine Negative (Negative); Nitrite,Urine Negative (Negative); Protein,Urine Negative; Urine Color Straw (Yellow); Urine Specific Gravity 1.004 (1.001-1.035); Urine Urobilinogen < 2.0 EU/DL (0.2-1.0); WBC,Urine <1 /HPF (0-6)
[2019-07-14] MEDS ORDERED: GABAPENTIN 300 MG CAPSULE PO SCH (21:00)
[2019-07-14] MEDS ORDERED: ROSUVASTATIN 20 MG TABLET PO SCH (21:00)
[2019-07-14] MEDS ORDERED: MONTELUKAST 10 MG TABLET PO SCH (21:00)
[2019-07-14] MEDS ORDERED: CARVEDILOL 6.25 MG TABLET PO SCH (21:00)
[2019-07-15 04:57] LABS: Basophils # 0.1 10*3/uL (0.0-0.2); Basophils % 0.7 % (0.0-0.8); Eosinophils # 0.2 10*3/uL (0.0-0.87); Eosinophils % 2.9 % (0.00-10.9); Hematocrit 40.4 VOL% (42.0-52.0); Hemoglobin 13.5 GM/DL (14.0-18.0); Immature Granulocytes % 0.4 %; Immature Granulocytes Absolute 0.03 #; Lymphocytes # 2.1 10*3/uL (1.4-4.0); Lymphocytes % 28.4 % (21.2-54.2); Mean Corpuscular HGB Conc 33.4 GM/DL (32-36); Mean Corpuscular Volume 97.8 FL (87-102); Mean Platelet Volume 10.4 FL (9.6-12.0); Neutrophils % 54.6 % (38.7-73.9); Platelet Count 170 T/CUMM (130-400); Red Blood Count 4.13 MC/CUMM (3.8-5.5); Red Cell Distribution Width 13.3 % (9.3-17.3); White Blood Count 7.5 T/CUMM (4-12)
[2019-07-15 05:29] LABS: Calcium 9.1 MG/DL (8.5-10.1); Osmolality,Calculated 273.8 MOS/KG (273-304); Risk Ratio 2.89; Thyroid Stimulating Hormone 1.26 uIU/ml (0.358-3.74); VLDL CHOLESTEROL 30.6 MG/DL
[2019-07-15] MEDS ORDERED: LISINOPRIL 2.5 MG TABLET PO SCH (09:00)
[2019-07-15] MEDS ORDERED: CARVEDILOL 6.25 MG TABLET PO SCH (09:00)
[2019-07-15] MEDS ORDERED: SPIRONOLACTONE 25 MG TABLET PO SCH ×2 (09:00→17:00)
[2019-07-15] MEDS ORDERED: TAMSULOSIN 0.4 MG CAPSULE PO SCH (09:00)
[2019-07-15] MEDS ORDERED: CITALOPRAM 20 MG TABLET PO SCH (09:00)
[2019-07-15] MEDS ORDERED: PANTOPRAZOLE 40 MG TABLET PO SCH (09:00)
[2019-07-15] MEDS ORDERED: AMIODARONE 200 MG TABLET PO SCH (09:00)
[2019-07-15] MEDS ORDERED: FUROSEMIDE 80 MG TABLET PO SCH (09:00)
[2019-07-15] MEDS ORDERED: traMADol 50 MG TABLET PO ONE (10:22)
[2019-07-15] MEDS ORDERED: GABAPENTIN 300 MG CAPSULE PO SCH (10:30)
[2019-07-15 12:26] VITALS: BP 129/71
[2019-07-15] MEDS ORDERED: ASPIRIN EC 325 MG TABLET PO SCH (21:00)
== END 2019-07-15 13:45 | disposition home or self-care (01) ==
LOC: N.ED 11:21 → N.EDINP 11:21 → N.TELES 16:18
PROVIDERS: ADMIT Internal Medicine; ATTEND Internal Medicine

== ENCOUNTER 2021-03-08 10:53 | Inpatient (IN) ==
[2021-03-08 11:41] LABS: Basophils % 0.1 % (0.0-0.8); Hematocrit 33.5 VOL% (42.0-52.0); Hemoglobin 10.8 GM/DL (14.0-18.0); Immature Granulocytes % 0.6 %; Immature Granulocytes Absolute 0.09 #; Lymphocytes # 1.3 10*3/uL (1.4-4.0); Lymphocytes % 9.3 % (21.2-54.2); Mean Corpuscular HGB Conc 32.2 GM/DL (32-36); Mean Corpuscular Volume 92.5 FL (87-102); Mean Platelet Volume 10.7 FL (9.6-12.0); Monocytes % 7.5 % (1.7-12.7); Neutrophils % 82.5 % (38.7-73.9); Platelet Count 299 T/CUMM (130-400); Red Blood Count 3.62 MC/CUMM (3.8-5.5); Red Cell Distribution Width 14.9 % (9.3-17.3); White Blood Count 14.2 T/CUMM (4-12)
[2021-03-08 12:03] LABS: Albumin 3.2 G/DL (3.4-5.0); Calcium 8.9 MG/DL (8.5-10.1); Osmolality,Calculated 256.5 MOS/KG (273-304); Potassium 4.1 MMOL/L (3.5-5.1); Total Protein 6.9 G/DL (6.4-8.2)
[2021-03-08 12:20] LABS: Bilirubin,Total 2.1 MG/DL (0.2-1.0)
[2021-03-08] MEDS ORDERED: FUROSEMIDE 40 MG/4 ML VIAL IV STA (12:27)
[2021-03-08 13:15] LABS: Bilirubin,Urine Negative (Negative); Blood, Urine Negative (Negative); Glucose,Urine (UA) Negative (Negative); Hyaline Casts,Urine 15 /LPF (0-3); Ketones,Urine Negative (Negative); Mucus,Urine Occasional /LPF (Occasional); Nitrite,Urine Negative (Negative); Protein,Urine 30 MG/DL; RBC,Urine 2 /HPF (0-4); Squamous Epithelial Cell,Urine Occasional /HPF (0-10); Urine Appearance CLEAR (Clear); Urine Color Yellow (Yellow); Urine Specific Gravity 1.014 (1.001-1.035); Urine Urobilinogen < 2.0 EU/DL (0.2-1.0); WBC,Urine 2 /HPF (0-6)
[2021-03-08] MEDS ORDERED: ACETAMINOPHEN 325 MG TABLET PO PRN (13:42)
[2021-03-08] MEDS ORDERED: DIGOXIN 0.5 MG/2 ML AMP IV ONE ×2 (13:42→16:00)
[2021-03-08] MEDS ORDERED: ALBUTEROL/IPRATROPIUM 3 ML NEB RESP TX PRN (13:42)
[2021-03-08] MEDS ORDERED: guaiFENesin/DM ER 600-30 MG TABLET PO PRN (13:42)
[2021-03-08] MEDS ORDERED: DEXTROSE 50% 25 GM/50 ML VIAL IV PRN ×2 (13:42)
[2021-03-08] MEDS ORDERED: GLUCAGON 1 MG VIAL IM PRN ×2 (13:42)
[2021-03-08] MEDS ORDERED: NICOTINE 21 MG/24 HR PATCH TRANSDERM PRN (13:42)
[2021-03-08] MEDS ORDERED: POTASSIUM CHLORIDE RIDER 10 MEQ in PREMIX 1 EACH IV PRN (13:47)
[2021-03-08] MEDS ORDERED: MAGNESIUM SULF RIDER 4 GM in PREMIX 1 EACH IV PRN (13:47)
[2021-03-08] MEDS ORDERED: MAGNESIUM SULF RIDER 2 GM in PREMIX 1 EACH IV PRN (13:47)
[2021-03-08] MEDS ORDERED: ENOXAPARIN 100 MG/ML SYRINGE SUBCUT SCH (14:00)
[2021-03-08] MEDS: ENOXAPARIN 100 MG/ML SYRINGE SUBCUT SCH (14:17)
[2021-03-08 14:26] LABS: Risk Ratio 3.02; Thyroid Stimulating Hormone 2.31 uIU/ml (0.358-3.74); VLDL CHOLESTEROL 19.6 MG/DL
[2021-03-08] MEDS ORDERED: DIGOXIN 0.5 MG/2 ML AMP IV SCH (14:30)
[2021-03-08] MEDS ORDERED: DILTIAZEM 60 MG TABLET PO ONE (14:39)
[2021-03-08] MEDS ORDERED: ALBUTEROL/IPRATROPIUM 3 ML NEB RESP TX SCH (15:00)
[2021-03-08] MEDS ORDERED: DILTIAZEM 30 MG TABLET PO SCH (15:00)
[2021-03-08] MEDS ORDERED: FUROSEMIDE 40 MG/4 ML VIAL IV SCH (16:00)
[2021-03-08] MEDS: FUROSEMIDE 40 MG/4 ML VIAL IV SCH (17:04)
[2021-03-08] MEDS: DILTIAZEM 60 MG TABLET PO SCH ×2 (17:05→23:16)
[2021-03-08] MEDS ORDERED: MONTELUKAST 10 MG TABLET PO SCH (18:15)
[2021-03-08] MEDS: carvediloL 3.125 MG TABLET PO SCH (20:37)
[2021-03-08] MEDS: BUDESONIDE/FORMOTEROL 160-4.5 INHALER 6 GM INH SCH (20:37)
[2021-03-08] MEDS: MEROPENEM 500 MG in SODIUM CHLORIDE 0.9% 100 ML IV SCH (20:37)
[2021-03-08] MEDS: cilostazoL 50 MG TABLET PO SCH (20:38)
[2021-03-08] MEDS: MONTELUKAST 10 MG TABLET PO SCH (20:38)
[2021-03-08] MEDS: gemfibroziL 600 MG TABLET PO SCH (20:38)
[2021-03-08] MEDS ORDERED: FUROSEMIDE 20 MG/2 ML VIAL IV SCH (21:00)
[2021-03-08] MEDS: IPRATROPIUM 500 MCG/2.5 ML NEB RESP TX SCH (21:05)
[2021-03-09] MEDS: IPRATROPIUM 500 MCG/2.5 ML NEB RESP TX SCH ×4 (01:34→19:59)
[2021-03-09] MEDS: ENOXAPARIN 100 MG/ML SYRINGE SUBCUT SCH ×2 (02:35→13:07)
[2021-03-09] MEDS: MEROPENEM 500 MG in SODIUM CHLORIDE 0.9% 100 ML IV SCH ×4 (02:35→20:22)
[2021-03-09] MEDS: ONDANSETRON 4 MG/2 ML VIAL IV PRN (02:42)
[2021-03-09] MEDS: DILTIAZEM 60 MG TABLET PO SCH ×4 (05:11→23:10)
[2021-03-09 05:58] LABS: Basophils % 0.1 % (0.0-0.8); Eosinophils # 0.1 10*3/uL (0.0-0.87); Eosinophils % 0.6 % (0.00-10.9); Hematocrit 31.6 VOL% (42.0-52.0); Immature Granulocytes % 0.6 %; Immature Granulocytes Absolute 0.07 #; Lymphocytes # 2.3 10*3/uL (1.4-4.0); Lymphocytes % 19.6 % (21.2-54.2); Mean Corpuscular HGB Conc 31.6 GM/DL (32-36); Mean Corpuscular Volume 92.4 FL (87-102); Mean Platelet Volume 10.7 FL (9.6-12.0); Monocytes % 10.6 % (1.7-12.7); Neutrophils % 68.5 % (38.7-73.9); Platelet Count 275 T/CUMM (130-400); Red Blood Count 3.42 MC/CUMM (3.8-5.5); White Blood Count 11.8 T/CUMM (4-12)
[2021-03-09 06:14] LABS: Calcium 8.4 MG/DL (8.5-10.1); Osmolality,Calculated 261.9 MOS/KG (273-304); Potassium 3.6 MMOL/L (3.5-5.1)
[2021-03-09 06:15] LABS: Calcium 8.6 MG/DL (8.5-10.1); Osmolality,Calculated 263.8 MOS/KG (273-304); Potassium 3.5 MMOL/L (3.5-5.1)
[2021-03-09 06:22] LABS: Hypochromasia 1+
[2021-03-09 06:23] LABS: Microcytosis 1+; Ovalocytes Slight; Platelet Estimate Normal
[2021-03-09] MEDS: TAMSULOSIN 0.4 MG CAPSULE PO SCH (08:19)
[2021-03-09] MEDS: carvediloL 3.125 MG TABLET PO SCH ×2 (08:19→20:23)
[2021-03-09] MEDS: cilostazoL 50 MG TABLET PO SCH ×2 (08:19→20:23)
[2021-03-09] MEDS: lisinopriL 2.5 MG TABLET PO SCH ×2 (08:19→08:22)
[2021-03-09] MEDS: FUROSEMIDE 40 MG/4 ML VIAL IV SCH ×2 (08:19→16:17)
[2021-03-09] MEDS: gemfibroziL 600 MG TABLET PO SCH ×2 (08:19→20:23)
[2021-03-09] MEDS: ASPIRIN EC 81 MG TABLET PO SCH (08:19)
[2021-03-09] MEDS: MONTELUKAST 10 MG TABLET PO SCH (08:19)
[2021-03-09] MEDS: PANTOPRAZOLE 40 MG TABLET PO SCH (08:19)
[2021-03-09] MEDS: BUDESONIDE/FORMOTEROL 160-4.5 INHALER 6 GM INH SCH ×2 (08:20→20:24)
[2021-03-09] MEDS: COENZYME Q10 100 MG CAPSULE PO SCH (08:59)
[2021-03-09] MEDS: LACTOBACILLUS ACIDOPHILUS/BULGARICUS CAPLET PO SCH (08:59)
[2021-03-09] MEDS: MULTIVITAMIN (CENTRUM) TABLET PO SCH (08:59)
[2021-03-09] MEDS ORDERED: BISOPROLOL 5 MG TABLET PO SCH (09:00)
[2021-03-09] MEDS: buPROPion 75 MG TABLET PO SCH ×2 (09:43→20:23)
[2021-03-09] MEDS: DIGOXIN 0.125 MG TABLET PO SCH (13:07)
[2021-03-09] MEDS: CITALOPRAM 20 MG TABLET PO SCH (14:05)
[2021-03-09] MEDS ORDERED: DIGOXIN 0.25 MG TABLET PO SCH (15:00)
[2021-03-09] MEDS ORDERED: CITALOPRAM 20 MG TABLET PO SCH (15:00)
[2021-03-09] MEDS: OMEGA 3 ACID ETHYL ESTERS 1 GM CAPSULE PO SCH (20:23)
[2021-03-09] MEDS: GABAPENTIN 300 MG CAPSULE PO SCH (20:23)
[2021-03-10] MEDS: IPRATROPIUM 500 MCG/2.5 ML NEB RESP TX SCH ×4 (01:22→19:39)
[2021-03-10] MEDS: ENOXAPARIN 100 MG/ML SYRINGE SUBCUT SCH ×2 (02:48→14:07)
[2021-03-10] MEDS: MEROPENEM 500 MG in SODIUM CHLORIDE 0.9% 100 ML IV SCH ×4 (02:48→20:38)
[2021-03-10] MEDS: DILTIAZEM 60 MG TABLET PO SCH ×3 (05:37→17:26)
[2021-03-10 05:55] LABS: Basophils % 0.2 % (0.0-0.8); Eosinophils # 0.2 10*3/uL (0.0-0.87); Eosinophils % 1.6 % (0.00-10.9); Hematocrit 28.2 VOL% (42.0-52.0); Hemoglobin 9.2 GM/DL (14.0-18.0); Immature Granulocytes % 0.7 %; Immature Granulocytes Absolute 0.08 #; Lymphocytes % 18.2 % (21.2-54.2); Mean Corpuscular HGB Conc 32.6 GM/DL (32-36); Mean Corpuscular Volume 91.3 FL (87-102); Monocytes % 9.5 % (1.7-12.7); Neutrophils % 69.8 % (38.7-73.9); Platelet Count 244 T/CUMM (130-400); Red Blood Count 3.09 MC/CUMM (3.8-5.5); Red Cell Distribution Width 14.8 % (9.3-17.3); White Blood Count 10.8 T/CUMM (4-12)
[2021-03-10 06:15] LABS: Eosinophils 3 % (0-10); Hypochromasia 1+; Lymphocytes 17 % (20-55); Microcytosis 1+; Platelet Estimate Adequate; Segmented Neutrophils 75 % (50-85); Total Cells Counted 100
[2021-03-10 06:18] LABS: Osmolality,Calculated 256.4 MOS/KG (273-304); Potassium 2.8 MMOL/L (3.5-5.1)
[2021-03-10] MEDS: lisinopriL 2.5 MG TABLET PO SCH (08:44)
[2021-03-10] MEDS: gemfibroziL 600 MG TABLET PO SCH ×2 (08:47→20:41)
[2021-03-10] MEDS: cilostazoL 50 MG TABLET PO SCH ×2 (08:47→20:40)
[2021-03-10] MEDS: MULTIVITAMIN (CENTRUM) TABLET PO SCH (08:47)
[2021-03-10] MEDS: ASPIRIN EC 81 MG TABLET PO SCH (08:47)
[2021-03-10] MEDS: MONTELUKAST 10 MG TABLET PO SCH (08:47)
[2021-03-10] MEDS: LACTOBACILLUS ACIDOPHILUS/BULGARICUS CAPLET PO SCH (08:47)
[2021-03-10] MEDS: COENZYME Q10 100 MG CAPSULE PO SCH (08:47)
[2021-03-10] MEDS: PANTOPRAZOLE 40 MG TABLET PO SCH (08:48)
[2021-03-10] MEDS: TAMSULOSIN 0.4 MG CAPSULE PO SCH (08:48)
[2021-03-10] MEDS: carvediloL 3.125 MG TABLET PO SCH ×2 (08:48→20:42)
[2021-03-10] MEDS: FUROSEMIDE 40 MG/4 ML VIAL IV SCH ×2 (08:48→17:26)
[2021-03-10] MEDS: buPROPion 75 MG TABLET PO SCH ×2 (08:48→20:41)
[2021-03-10] MEDS: BUDESONIDE/FORMOTEROL 160-4.5 INHALER 6 GM INH SCH ×2 (08:54→20:42)
[2021-03-10] MEDS ORDERED: FUROSEMIDE 40 MG/4 ML VIAL IV ONE (12:05)
[2021-03-10] MEDS ORDERED: POTASSIUM CHLORIDE 20 MEQ TABLET PO ONE ×2 (12:07→14:00)
[2021-03-10] MEDS: DIGOXIN 0.125 MG TABLET PO SCH (13:16)
[2021-03-10] MEDS: CITALOPRAM 20 MG TABLET PO SCH (14:25)
[2021-03-10] MEDS: GABAPENTIN 300 MG CAPSULE PO SCH (20:39)
[2021-03-10] MEDS: APIXABAN 5 MG TABLET PO SCH (20:40)
[2021-03-10] MEDS: OMEGA 3 ACID ETHYL ESTERS 1 GM CAPSULE PO SCH (20:41)
[2021-03-11] MEDS: DILTIAZEM 60 MG TABLET PO SCH ×5 (00:12→23:00)
[2021-03-11] MEDS: IPRATROPIUM 500 MCG/2.5 ML NEB RESP TX SCH ×5 (00:40→20:27)
[2021-03-11] MEDS: MEROPENEM 500 MG in SODIUM CHLORIDE 0.9% 100 ML IV SCH ×4 (02:49→20:56)
[2021-03-11 07:05] LABS: Basophils % 0.2 % (0.0-0.8); Eosinophils # 0.2 10*3/uL (0.0-0.87); Eosinophils % 1.5 % (0.00-10.9); Hematocrit 28.8 VOL% (42.0-52.0); Hemoglobin 9.5 GM/DL (14.0-18.0); Immature Granulocytes % 0.6 %; Immature Granulocytes Absolute 0.06 #; Lymphocytes # 1.4 10*3/uL (1.4-4.0); Mean Platelet Volume 11.1 FL (9.6-12.0); Neutrophils % 71.7 % (38.7-73.9); Platelet Count 248 T/CUMM (130-400); Red Cell Distribution Width 14.6 % (9.3-17.3); White Blood Count 9.8 T/CUMM (4-12)
[2021-03-11 07:17] LABS: Calcium 8.2 MG/DL (8.5-10.1); Osmolality,Calculated 251.5 MOS/KG (273-304); Potassium 2.9 MMOL/L (3.5-5.1)
[2021-03-11 07:27] LABS: Eosinophils 3 % (0-10); Hypochromasia 1+; Lymphocytes 11 % (20-55); Microcytosis 1+; Ovalocytes Slight; Platelet Estimate Adequate; Segmented Neutrophils 74 % (50-85); Total Cells Counted 100
[2021-03-11] MEDS ORDERED: POTASSIUM CHLORIDE 20 MEQ TABLET PO ONE ×4 (07:34→13:09)
[2021-03-11] MEDS ORDERED: SPIRONOLACTONE 25 MG TABLET PO SCH (09:00)
[2021-03-11] MEDS: PANTOPRAZOLE 40 MG TABLET PO SCH (09:07)
[2021-03-11] MEDS: ASPIRIN EC 81 MG TABLET PO SCH (09:08)
[2021-03-11] MEDS: carvediloL 3.125 MG TABLET PO SCH ×2 (09:08→21:00)
[2021-03-11] MEDS: lisinopriL 2.5 MG TABLET PO SCH (09:08)
[2021-03-11] MEDS: buPROPion 75 MG TABLET PO SCH ×2 (09:08→21:00)
[2021-03-11] MEDS: MULTIVITAMIN (CENTRUM) TABLET PO SCH (09:08)
[2021-03-11] MEDS: MONTELUKAST 10 MG TABLET PO SCH (09:08)
[2021-03-11] MEDS: TAMSULOSIN 0.4 MG CAPSULE PO SCH (09:09)
[2021-03-11] MEDS: cilostazoL 50 MG TABLET PO SCH ×2 (09:09→21:00)
[2021-03-11] MEDS: gemfibroziL 600 MG TABLET PO SCH ×2 (09:09→21:00)
[2021-03-11] MEDS: COENZYME Q10 100 MG CAPSULE PO SCH (09:09)
[2021-03-11] MEDS: FUROSEMIDE 40 MG/4 ML VIAL IV SCH (09:09)
[2021-03-11] MEDS: LACTOBACILLUS ACIDOPHILUS/BULGARICUS CAPLET PO SCH (09:09)
[2021-03-11] MEDS: APIXABAN 5 MG TABLET PO SCH ×2 (09:10→21:00)
[2021-03-11] MEDS: BUDESONIDE/FORMOTEROL 160-4.5 INHALER 6 GM INH SCH ×2 (09:22→21:01)
[2021-03-11] MEDS: ONDANSETRON 4 MG/2 ML VIAL IV PRN (09:23)
[2021-03-11] MEDS ORDERED: MAGNESIUM HYDROXIDE SUSP 30 ML UDCUP PO ONE (13:39)
[2021-03-11] MEDS: CITALOPRAM 20 MG TABLET PO SCH (14:10)
[2021-03-11] MEDS: DIGOXIN 0.125 MG TABLET PO SCH (14:10)
[2021-03-11] MEDS: OMEGA 3 ACID ETHYL ESTERS 1 GM CAPSULE PO SCH (20:59)
[2021-03-11] MEDS: GABAPENTIN 300 MG CAPSULE PO SCH (21:00)
[2021-03-12] MEDS: IPRATROPIUM 500 MCG/2.5 ML NEB RESP TX SCH ×3 (00:21→13:50)
[2021-03-12] MEDS: MEROPENEM 500 MG in SODIUM CHLORIDE 0.9% 100 ML IV SCH ×2 (03:28→09:40)
[2021-03-12] MEDS: DILTIAZEM 60 MG TABLET PO SCH (05:57)
[2021-03-12 06:11] LABS: Basophils % 0.1 % (0.0-0.8); Eosinophils # 0.2 10*3/uL (0.0-0.87); Eosinophils % 1.9 % (0.00-10.9); Hematocrit 28.5 VOL% (42.0-52.0); Hemoglobin 9.2 GM/DL (14.0-18.0); Immature Granulocytes % 0.6 %; Immature Granulocytes Absolute 0.06 #; Lymphocytes # 1.2 10*3/uL (1.4-4.0); Lymphocytes % 12.2 % (21.2-54.2); Mean Corpuscular HGB Conc 32.3 GM/DL (32-36); Mean Corpuscular Volume 91.6 FL (87-102); Mean Platelet Volume 10.9 FL (9.6-12.0); Neutrophils % 74.2 % (38.7-73.9); Platelet Count 234 T/CUMM (130-400); Red Blood Count 3.11 MC/CUMM (3.8-5.5); Red Cell Distribution Width 14.7 % (9.3-17.3); White Blood Count 9.9 T/CUMM (4-12)
[2021-03-12 06:31] LABS: Calcium 8.3 MG/DL (8.5-10.1); Osmolality,Calculated 250.5 MOS/KG (273-304)
[2021-03-12 06:34] LABS: Hypochromasia 1+
[2021-03-12 06:35] LABS: Microcytosis 1+; Polychromasia Slight
[2021-03-12] MEDS ORDERED: SPIRONOLACTONE 25 MG TABLET PO SCH (09:00)
[2021-03-12] MEDS ORDERED: DILTIAZEM 60 MG TABLET PO SCH (09:00)
[2021-03-12] MEDS ORDERED: FUROSEMIDE 40 MG/4 ML VIAL IV SCH (09:00)
[2021-03-12] MEDS: MULTIVITAMIN (CENTRUM) TABLET PO SCH (09:11)
[2021-03-12] MEDS: ASPIRIN EC 81 MG TABLET PO SCH (09:12)
[2021-03-12] MEDS: APIXABAN 5 MG TABLET PO SCH (09:13)
[2021-03-12] MEDS: PANTOPRAZOLE 40 MG TABLET PO SCH (09:13)
[2021-03-12] MEDS: MONTELUKAST 10 MG TABLET PO SCH (09:13)
[2021-03-12] MEDS: lisinopriL 2.5 MG TABLET PO SCH (09:13)
[2021-03-12] MEDS: carvediloL 3.125 MG TABLET PO SCH (09:14)
[2021-03-12] MEDS: COENZYME Q10 100 MG CAPSULE PO SCH (09:14)
[2021-03-12] MEDS: gemfibroziL 600 MG TABLET PO SCH (09:15)
[2021-03-12] MEDS: TAMSULOSIN 0.4 MG CAPSULE PO SCH (09:15)
[2021-03-12] MEDS: LACTOBACILLUS ACIDOPHILUS/BULGARICUS CAPLET PO SCH (09:15)
[2021-03-12] MEDS: buPROPion 75 MG TABLET PO SCH (09:16)
[2021-03-12] MEDS: BUDESONIDE/FORMOTEROL 160-4.5 INHALER 6 GM INH SCH (09:19)
[2021-03-12 11:52] VITALS: BP 115/67
[2021-03-12] MEDS: DIGOXIN 0.125 MG TABLET PO SCH (13:42)
[2021-03-13] MEDS ORDERED: buPROPion 75 MG TABLET PO SCH (09:00)
== END 2021-03-12 14:45 | disposition home health service (06) | DRG 291 ==
LOC: N.ED 10:53 → N.EDINP 13:42 → SUATTDRO 13:42 → N.TELEN 14:20
PROVIDERS: ADMIT Internal Medicine; ATTEND Emergency Medicine